=== PATIENT | male | born 1965 | race Caucasian/White ===

== ENCOUNTER 2022-12-27 10:13 | Emergency (ER) | payer OTHER ==
[~2022-12-27] VITALS: Ht 172.7 cm; Wt 89.8 kg
[2022-12-27] MEDS ORDERED: LEVOFLOXACIN750 MG PO (11:18)
== END 2022-12-27 11:48 | disposition home or self-care (01) ==
LOC: ED 10:13
DX: N43.3 Hydrocele, unspecified (principal); Z88.2 Allergy status to sulfonamides
CPT/HCPCS: 76870; 81003; 99284-25

== ENCOUNTER 2024-03-26 06:58 | Day surgery (SDC) | payer OTHER ==
[~2024-03-26] VITALS: Ht 172.7 cm; Wt 92.1 kg
[~2024-03-26 06:58] MED LIST: LACTATED RINGER'S 1,000 ML IV SCH; LEVOFLOXACIN750 MG PO; NORVASC5 MG PO; VITAMIN D325 MCG
[2024-03-26] MEDS ORDERED: LIDOCAINE HCL 1% 5 ML SDV INJ ONE (07:00)
[2024-03-26] MEDS ORDERED: CEFAZOLIN SODIUM 2 GM/20 ML SYR IV SCH (07:00)
[2024-03-26] MEDS ORDERED: IBLOOD GLUCOSE TEST STRIP 1 EA TEST VI PRN ×2 (07:00→11:15)
[2024-03-26 07:24] VITALS: BP 134/85
[2024-03-26] MEDS ORDERED: NASACORT10.8 ML NAS (07:26)
[2024-03-26] MEDS ORDERED: HYDROmorphone HCL 1 MG/ML SYR IV PRN (08:00)
[2024-03-26] MEDS ORDERED: ondansetron HCL 4 MG/2 ML VIAL IV PRN ×2 (08:00→11:15)
[2024-03-26] MEDS ORDERED: OXYCODONE/APAP 5/325 TAB PO PRN (08:00)
[2024-03-26] MEDS ORDERED: ACETAMINOPHEN 1,000 MG/100 ML VIAL ONE (09:29)
[2024-03-26] MEDS ORDERED: ondansetron HCL 4 MG/2 ML VIAL ONE (09:29)
[2024-03-26] MEDS ORDERED: KETAMINE in NS 50 MG/5 ML SYR ONE (09:29)
[2024-03-26] MEDS ORDERED: DEXAMETHASONE SOD PHOS 4 MG/ML VIAL ONE (09:29)
[2024-03-26] MEDS ORDERED: propofoL 200 MG/20 ML VIAL ONE (09:29)
[2024-03-26] MEDS ORDERED: LIDOCAINE HCL 2% 5 ML SDV ONE (09:29)
[2024-03-26] MEDS ORDERED: fentaNYL citrate 100 MCG/2 ML VIAL ONE (09:29)
[2024-03-26] MEDS ORDERED: ePHEDrine sulfate 50 MG/ML AMP ONE (10:26)
[2024-03-26] MEDS ORDERED: KETOROLAC TROMETHAMINE 30 MG/ML VIAL IV PRN (11:15)
[2024-03-26] MEDS ORDERED: NALOXONE HCL 0.4 MG SYR IV PRN (11:15)
[2024-03-26] MEDS ORDERED: fentaNYL citrate 50 MCG/ML SDV IV PRN (11:15)
--- NOTE | 2024-03-26 11:46 | NUR ---
03/26/24 1146 Moncho Hernandez 1131: PT ARRIVED TO PACU VIA STRETCHER. TO NON AROUSABLE AT THIS TIME. PT ON RA. RESPIRATIONS EVEN AND UNBLABORED. PT HAS CUFF ON ANKLES BILATERALLY. NO REDNESS NOTES AROUND CUFFS. SOCK BARRIER BETWEEN CUFFS AND SKIN. 1135: PT COUGHING. SAT HEAD OF BED UP AT THIS TIME. PT REMAINS ON RA WITH SATS IN THE MID 90'S. 1145: PT AWAKE AND TALKING AT THIS TIME. PT ON RA. PT RATING PAIN 6/10 AT THIS TIME. PT HAS SMALL AMOUNT OF DRAINGE TO GAUZE FLUFF IN PLACE.
--- NOTE | 2024-03-26 12:10 | NUR ---
PT ARRIVES TO DS UNIT FROM PACU VIA STRETCHER. PT REPORTS PAIN 7/10 AND AUDIBLY GROANING OCCASIONALLY OUT OF DISCOMFORT AT THIS TIME. CHOCOLATE PUDDING PROVIDED AT THIS TIME SO PRN PAIN MED COULD BE GIVEN (SEE EMAR). PT TOLERATING ICE WATER WITHOUT DIFFICULTY SWALLOWING. REPORT RECEIVED FROM YASHIRA RITTER AND SURGICAL SITE VISUALIZED. ICE PACK IN PLACE OUTSIDE OF JOCKSTRAP. PT REPORTS NEED TO URINE VOID, THIS RN ASSISTS W/HOLDING JOCKSTRAP, PT UNABLE TO URINATE AT THIS TIME. CALL LIGHT WITHIN REACH, X2 GUARDS AT BEDSIDE, PT REPORTS NO FURTHER NEEDS OR QUESTIONS AT THIS TIME.
[2024-03-26 12:13] VITALS: BP 133/74
--- NOTE | 2024-03-26 13:00 | NUR ---
IN PT ROOM FOR PAIN ASSESSMENT. PT REPORTS PRESSURE IN BLADDER AND WANTS TO PEE, BUT CAN'T. PT STATES DISCOMFORT EXPERIENCED AT THIS TIME IS D/T PRESSURE. THIS RN BLADDER SCAN'S PT FOR VOLUME OF 675 ML. PT STATES NO PAIN W/PROBE ON BLADDER, BUT BLADDER IS PALPABLE. PT STATES HE WOULD LIKE TO STAND UP TO TRY AND URINE VOID. THIS RN ASSISTS PT W/STANDING AT BEDSIDE TO VOID IN URINAL, 275 OF CLEAR/YELLOW URINE. PT STATES THIS ASSISTED IN ALLEVIATING PRESSURE PAIN. PT BACK TO BED AND ICE PACK IN PLACE AT THIS TIME. NO NEW SHADOWING AT THIS TIME TO SURGICAL SITE. CALL LIGHT WITHIN REACH, X2 GUARDS IN ROOM.
--- NOTE | 2024-03-26 13:27 | EKG ---
[facility] [address] [facility] [place] [address] Signed Sinus bradycardia Left axis deviation Abnormal ECG No previous ECGs available Confirmed by Kendra Reyes MD () on 03/26/2024 1:26:45 PM Electronically Signed By: KENDRA REYES MD 03/26/24 1327 PATIENT NAME: HELENE SANON Electrocardiogram DATE OF : 61 PHYSICIAN: KENDRA REYES MD REPORT #: [id number] REPORT IS CONFIDENTIAL AND NOT TO BE RELEASED WITHOUT AUTHORIZATION
--- NOTE | 2024-03-26 13:30 | NUR ---
IN PT ROOM FOR PAIN ASSESSMENT. PT REPORTS PAIN HAS IMPROVED TO TOLERABLE LEVEL OF 4/10. PT STATES URINATING HELPED TO ALLEVIATE SOME OF THE PRESSURE. VS TAKEN. PT GETTING DRESSED W/GUARDS ASSISTANCE AT THIS TIME. CALL LIGHT WITHIN REACH.
[2024-03-26 13:34] VITALS: BP 142/84
--- NOTE | 2024-03-26 13:47 | NUR ---
PT DISCHARGED BACK TO [facility] WITH CORRECTIONAL OFFICERS. PT DISCHARGE INSTRUCTIONS GIVEN ON EDUCATION, FOLLOW-UP, ACTIVITY, WHEN TO CONTACT MD, AND WOUND CARE. PT VERBALIZED UNDERSTANDING. IV DC'D TIP INTACT. PT TOLERATED WELL. PT LEFT FOR HOME VIA WHEELCHAIR.
--- NOTE | 2024-03-26 14:40 | NUR ---
THIS RN CALLED AND SPOKE TO RN AT [facility] RN FOR REPORT. ALL QUESTIONS ANSWERED AND LAST TIME FOR MANAGER MOLECULAR GIVEN. RN STATES NO FURTHER QUESTIONS AT THIS TIME.
--- NOTE | 2024-04-02 14:24 | PATH ---
[facility] [address] [place], [place] [address] Signed SPECIMEN(S): A RIGHT HYDROCELE SAC SPECIMEN SOURCE: A. RIGHT HYDROCELE SAC CLINICAL HISTORY: Right hydrocele (N43) FINAL PATHOLOGIC DIAGNOSIS: Hydrocele sac, right, excision: - Hydrocele. COMMENT: Benign fibrovascular tissue is present. The connective tissue contains a luminal surface, compatible with a hydrocele. Atypical features are not seen. TWK MICROSCOPIC EXAMINATION: Histologic sections of all submitted blocks are examined by light microscopy. These findings, together with the gross examination, support the pathologic diagnosis. GROSS DESCRIPTION: The specimen, labeled and designated "Madie, " and designated on the requisition "right hydrocele sac," is received in formalin and consists of a portion of goodwin-pink to red-brown soft membranous tissue (4.0 x 3.5 x 1.8 cm in aggregate). Roaster[place] sections are submitted in cassette A1. AC (under the direct supervision of a pathologist) The Gross Description was prepared using a voice recognition system. The report was reviewed for accuracy; however, sound-alike word errors, addition and/or deletions may occur. If there is any question about this report, please contact Client Services. ADDITIONAL NOTES: Immunohistochemical and/or in situ hybridization studies if performed in this case included appropriate positive controls that reacted as expected. This test was developed and its performance characteristics determined by [facility]. It has not been cleared or approved by the U.S. Food and Drug Administration. The FDA has determined that such clearance or approval is not PATIENT NAME: HELENE SANON PATHOLOGY DATE OF : 61 REPORT #: [id number] PHYSICIAN: TATA ARMENDARIZ PCP: ANGELA HADLEY REPORT IS CONFIDENTIAL AND NOT TO BE RELEASED WITHOUT AUTHORIZATION [address] [address] Signed necessary. This test is used for clinical purposes. It should not be regarded as investigational or for research. [facility] is certified under the Clinical Laboratory Improvement Amendments of 1988 (CLIA) as qualified to perform high complexity clinical laboratory testing. PERFORMING LABORATORY: Technical component was performed by [facility], [address] [place] [id number] (CLIA# [id number]). Professional interpretation was performed by [facility] - [facility], [facility] [address] [address] (CLIA#:[id number]). Diagnostician: Nathaniel Guerra MD Pathologist Electronically Signed 04/02/2024 Copies: ~ PATIENT NAME: HELENE SANON PATHOLOGY DATE OF : 61 REPORT #: [id number] PHYSICIAN: TATA ARMENDARIZ PCP: HADLEY,ANGELA R CLAY DIGGER REPORT IS CONFIDENTIAL AND NOT TO BE RELEASED WITHOUT AUTHORIZATION
== END 2024-03-26 13:45 | disposition home or self-care (01) ==
LOC: OPS 06:58 → DS 06:58 → OPS 10:40 → DS 13:20 → OPS 13:20
PROVIDERS: ATTEND Urology
PROC: 0VBF0ZZ Excision of Right Spermatic Cord, Open Approach (ICD-10-PCS; principal; 2024-03-26 10:40)
DX: N43.3 Hydrocele, unspecified (principal); I10 Essential (primary) hypertension; E78.5 Hyperlipidemia, unspecified; Z88.2 Allergy status to sulfonamides
CPT/HCPCS: 00920; 71045; 93005; 93010; J0131; J0690; J1100; J2001; J2405; J2704; J3010; J3490; J7121